=== PATIENT | female | born 2000 | race Caucasian/White ===

== ENCOUNTER 2021-04-24 09:25 | Emergency (ER) | payer OTHER, SELFPAY ==
[2021-04-24 09:30] VITALS: BP 117/81; PULSE 93; RESP 14; TEMP 36.9; O2SAT 99
[2021-04-24 09:43] VITALS: BP 132/65; PULSE 89; RESP 16; TEMP 36.9; O2SAT 99; BMI 20.1
--- NOTE | 2021-04-24 09:59 | ED_ITS ---
HPI - Female Genitourinary General Chief complaint: Urogenital-Female Stated complaint: ? UTI Time Seen by Provider: 04/24/21 09:50 Source: patient Mode of arrival: ambulatory Limitations: no limitations History of Present Illness HPI Narrative: 20-year-old female presenting to the ED with complaints of suprapubic abdominal pain/cramping sensation with associated dysuria/increased urinary urgency/frequency over the past 2 weeks. She reports that she was tested for gonorrhea chlamydia and was negative. Then she spoke to her friend and her friend told her that she could possibly have a UTI therefore she came h [facility] for further evaluation treatment. She reports that she was initially only having suprapubic abdominal pain/cramping with associated dysuria/increased urinary urgency and frequency although last night she developed right flank/right back pain. She reports over the past month she was having subjective fevers, chills, sore throat, nasal congestion/rhinorrhea and was negative for COVID. Reports that she does not need to be tested again today. She denies any measured fevers, hematuria, abnormal vaginal discharge, genital itching, genital rash or lesions, general swelling, thoughts of , thoughts of STDs due to she was already negative a week ago for gonorrhea chlamydia, or any other symptoms complaints or concerns at this time. Reports that she is currently on her period for the 2nd time this month. MD elicited complaint: dysuria, UTI , back pain and flank pain Onset (ago): week(s) (For the past 2 weeks worse since last night) Location of symptoms: suprapubic Severity: mild Female Urogenital Radiation: R Flank (And right back) Quality of pain: cramping Consistency: constant and progressively worsening Vaginal discharge: none Vaginal bleeding: none Urinary symptoms: Dysuria, Urgency, Frequency and Flank Pain Exacerbating factors: urination Relieving factors: none Associated symptoms: abdominal pain and back pain Treatment prior to arrival: none Sexual activity: Yes Patient : No Date of Last Menstrual Period: 04/24/21 Related Data Previous Rx's Medication Instructions Recorded nitrofurantoin 100 mg PO BID 7 Days #14 cap 04/24/21 monohydrate/macrocrystals 100 mg capsule (Macrobid) phenazopyridine 100 mg tablet 100 mg PO TID PRN #6 tab 04/24/21 (Pyridium) Allergies Allergy/AdvReac Type Severity Reaction Status Date / Time No Known Allergies Allergy Verified 04/24/21 09:50 Review of Systems Review of Systems: Constitutional : No Fever, No Chills ENT/Mouth : No sore throat, No Rhinorrhea Eyes: No Eye Pain, No Redness Cardiovascular : No Chest Pain, No SOB Respiratory : No Cough, No Sputum, No Wheezing Gastrointestinal : No Nausea, No Vomiting, No Diarrhea, positive abdominal pain, Genitourinary : No irregular bleeding, + Dysuria, + Urinary Frequency, + pelvic pain, No vaginal discharge, no hematuria Musculoskeletal : No Myalgias Skin : No rash Neuro : No Weakness, No Headache Psych : No Anxiety/Panic, No Depression Heme/Lymph: No bruising, No Lymphadenopathy Endocrine : No Polyuria, No Polydipsia Yes all other systems are reviewed and are negative [facility] Past Medical History Attestation statement: The following information was validated with the patient. Date of Last Menstrual Period: 04/24/21 Social History Social History Advance Directives: No Advance Directives Information Provided: No Patient : No Physical Exam Vital Signs: Vital Signs: Last Vital Signs Temp 98.4 F 04/24/21 09:43 Pulse 89 04/24/21 09:43 Resp 16 04/24/21 09:43 BP 132/65 04/24/21 09:43 Pulse Ox 99 04/24/21 09:43 Body Mass Index 20.1 vital signs have been reviewed as normal and appeared to be correct. Blood pressure normal. Heart rate normal. Respiration rate normal. Temperature normal. Oxygen saturation normal. Appearance: Alert. Oriented X3. No acute distress. Head: Normal external exam. Normocephalic. Eyes: PERRLA. EOMI. Conjunctiva and sclera normal. Eyelids normal. ENT: Pharynx normal. Uvula midline. Moist mucous membranes. Neck: Normal inspection. Neck supple. FROM. No adenopathy. No meningeal signs. CVS: Normal heart rate and rhythm. Heart sound normal. No murmurs noted. Pulses normal throughout. Respiratory: No respiratory distress. Painless inspiration. Breath sounds normal. No wheezes/rales/rhonchi noted. Chest nontender. No accessory muscle usage noted or decreased air movement noted. Abdomen: Soft and mild tenderness palpation to suprapubic area. Nondistended. No guarding. No rigidity. Bowel sounds normal in all 4 quadrants. No distention noted. No organomegaly noted. No visible injury noted. No rebound tenderness. Negative Rovsing sign. Negative obturator's sign. Negative psoas sign. Negative Rodriguez sign. Back: + mild right CVA tenderness. No left CVAT noted. Full range of motion noted. Skin: Skin warm and dry. Normal skin color. Normal skin turgor. No rashes/lesions/lacerations noted. Extremities: Extremities exhibit normal range of motion. Extremities nontender. Neuro: Oriented X 3. No motor deficit. No sensory deficit. Reflexes normal. Normal steady gait. Course Course Course Narrative: - 20-year-old female presenting to the ED with complaints of suprapubic abdominal pain/cramping sensation with associated dysuria/increased urinary urgency/frequency over the past 2 weeks. She reports that she was tested for gonorrhea chlamydia and was negative. Then she spoke to her friend and her friend told her that she could possibly have a UTI therefore she came here for further evaluation treatment. She reports that she was initially only having suprapubic abdominal pain/cramping with associated dysuria/increased urinary urgency and frequency although last night she developed right flank/right back pain. She reports over the past month she was having subjective fevers, chills, sore throat, nasal congestion/rhinorrhea and was negative for COVID. Reports that she does not need to be tested again today. Patient most likely UTI. Less likely to be pyelonephritis/kidney stone. Will obtain a UA and UHCG and treat with Macrobid and pyridium instructions return if any new or worsening symptoms to follow up with primary care provider. Patient understands agrees with this plan. MDM - Female Genitourinary Medical Records Attestation: I reviewed the patient's medical records. Lab Data Attestation: I reviewed the patient's lab results. Labs: Lab Results 04/24/21 04/24/21 Range/Units 10:02 10:02 Urine Color YELLOW Urine Appearance CLOUDY Urine pH 6.0 (5.0-8.0) Ur Specific [place] 1.025 (1.005-1.025) Urine Protein 1+ H (NEG-TRACE) MG/DL Urine Glucose (UA) NEG (NEG) MG/DL Urine Ketones NEG (NEG) MG/DL Urine Blood 3+ H (NEG) Urine Nitrite NEG (NEG) Ur Leukocyte Esterase 2+ H (NEG) Urine RBC 5-9 H (0) /HPF Urine WBC TNTC H (0-4) /HPF Ur Squamous Epith Cells 2+ /LPF Urine Bacteria 1+ /LPF Urine Test NEGATIVE (NEGATIVE) Discharge Plan Discharge Clinical Impression: Urinary tract infection Patient Disposition: Home, Self-Care Instructions: Urinary Tract Infection in Women (ED) Prescriptions: New nitrofurantoin monohyd/m-cryst [Macrobid] 100 mg capsule 100 mg PO BID 7 Days Qty: 14 RF: 0 phenazopyridine [Pyridium] 100 mg tablet 100 mg PO TID PRN (Reason: pain) Qty: 6 RF: 0 Referrals: Physician,None [Primary Care Provider] - 2 days (your pcp) Stand Alone Forms: Work/School Release Print Language: Kyrgyz
[2021-04-24] MEDS: Phenazopyridine HCL 200 MG TABLET PO (10:11)
[2021-04-24] MEDS: Nitrofurantoin Monohyd/M-Cryst 100 MG CAPSULE PO (10:11)
[2021-04-24 10:19] LABS: Appearance Urine CLOUDY; Color Urine YELLOW; Glucose Urine UA NEG (NEG); Leukocyte Esterase Urine 2+ (NEG); Nitrite Urine NEG (NEG); Specific Gravity - Urine 1.025 (1.005-1.025); UACC Culture Trigger YES; Urine Blood 3+ (NEG); Urine Ketones NEG (NEG); Urine Protein 1+ MG/DL (NEG-TRACE)
[2021-04-24 10:23] LABS: UPreg QC Valid YES; Urine Pregnancy NEGATIVE (NEGATIVE)
[2021-04-24 10:30] LABS: WBC Urine TNTC /HPF (0-4)
[2021-04-24 10:31] LABS: Bacteria Urine 1+ /LPF; Squamous Epithelial Cell Urine 2+ /LPF
== END 2021-04-24 10:40 | disposition home or self-care (01) ==
PROVIDERS: Physician Assistant Medical; Emergency Provider Emergency Medicine
DX: N39.0 Urinary tract infection, site not specified (principal); R30.0 Dysuria; R10.9 Unspecified abdominal pain; Z79.899 Other long term (current) drug therapy
CPT/HCPCS: 81001; 81025; 87086; 87088; 87186; 99283; 99284